=== PATIENT | male | born 1985 | race Caucasian/White ===

== ENCOUNTER 2025-01-05 16:07 | Emergency (ER) | payer SELFPAY ==
--- OUTSIDE RECORDS SUMMARY | 2025-01-05 16:12 | XMS_ITS | Encounter Summary ---
Author Organization [facility] Address [facility] [place] [address] Care Team Providers Care Convention Planner Name Role Phone Sandip Velasco MD Primary Care Provider [phone] Encounter Details Date Type Department Care Team (Late st Contact Info) Description 01/31/[address] 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
--- OUTSIDE RECORDS SUMMARY | 2025-01-05 16:12 | XMS_ITS | Clinical Summary ---
Author Organization [facility] Address [address] [place] [id number] Care Team Providers Care Property Field Adjuster Name Role Phone Sandip Velasco MD Primary Care Provider [phone] Allergies Active Allergy Reactions Criticality Noted Date Comments Penicillins Unknown 03/05/2011 Immunizations Immunization Administration Dates Next Due Tdap (Boostrix) 08/24/2022 Social History Tobacco Use Types Packs/Day Years Used Date Smoking Tobacco: Every Day Cigarettes Smokeless Tobacco: Never Tobacco Cessation:Ready to Q uit: Not Asked; Counseling Given: Not Answered Alcohol Use Standard Drinks/Week Comments Yes 20 (1 standard drink = 0.6 oz pu re alcohol) Sex and Gender Information Value Date Recorded Sex Assigned at Not on file 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 Gender Identity Not on file Sexual Orientation Not on file Last Filed Vital Signs Vital Sign Reading Time Taken Comments Blood Pressure 128/75 08/24/2022 7:56 PM AUDIT MACHINE OPERATOR Pulse 81 08/24/2022 7:56 PM AUDIT MACHINE OPERATOR Temperature 36.8 C (98.3 F) 08/24/2022 7:56 PM AUDIT MACHINE OPERATOR Respiratory Rate 16 08/24/2022 7:56 PM AUDIT MACHINE OPERATOR Oxygen Saturation 99% 08/24/2022 7:56 PM AUDIT MACHINE OPERATOR Inhaled Oxygen Concentration - - Weight 69.4 kg (153 lb) 08/24/2022 7:56 PM AUDIT MACHINE OPERATOR Height 170.2 cm (5' 7) 08/24/2022 7:56 PM AUDIT MACHINE OPERATOR Body Mass Index 23.96 08/24/2022 7:56 PM AUDIT MACHINE OPERATOR Plan of Treatment Health Maintenance Due Date Last Done Comments Annual Physical 10/20/1990 Hepatitis C 10/20/2005 Pneumococcal Vaccine: Pediatrics (0 to 5 Years) and At-Risk Patients (6 to 49 Years) (1 of 2 - PCV) 10/20/2006 COVID-19 Vaccine (1 - 2023-25 season) 2024 DTaP, Tdap and Td Vaccines (7 - Td or Tdap) 08/24/2032 08/24/2022, 08/04/2002, 11/21/1992, Additional history exists Hepatitis B Vaccines Completed 10/28/1997, 05/21/1997, 04/16/1997 HPV Vaccines Aged Out No longer eligi ble based on patient's age to complete this topic Meningococcal B Vaccine Aged Out No l onger eligible based on patient's age to complete this topic Meningococcal Vaccine Aged Out No jeanette priya eligible based on patient's age to complete this topic RSV Immunizations Under 20 Months Aged Out No longer eligible based on patient's age to complete this topic Insurance [facility] [place] [address] Care Teams Property Field Adjuster Relationship Specialty Start Date End Date Sandip Velasco MD [address] [place] [address] PCP - General INTERNAL MEDICINE 08/24/22
[2025-01-05 16:17] VITALS: BP 132/79; PULSE 82; RESP 18; TEMP 36.6; O2SAT 98
--- NOTE | 2025-01-05 16:31 | ED_ITS ---
HPI - General Adult General Chief complaint: Wound/Laceration Stated complaint: Bite his Tongue History of Present Illness HPI narrative: Crow Pérez Is a 39-year-old male who presents today after biting his tongue 2 months ago and he explains that he was drinking with buddies and 'messing around and he didn't realize until the following day that he had bit part of his tongue off and he states that it was not giving him any pain it was getting better and then he bit another part of his tongue a few days ago and still having a lot of pain to the right side of his tongue. No active bleeding just complains of right lateral tongue pain Related Data Allergies Allergy/AdvReac Type Severity Reaction Status Date / Time Penicillins Allergy Unknown Unknown Verified 01/05/25 16:24 Review of Systems Review of Systems: All systems reviewed & are unremarkable except as noted in HPI and below Exam Narrative: GENERAL: Well-appearing, well-nourished, and in no acute distress. HEAD: Normocephalic, atraumatic. EYES: PERRLA and EOMI. ENT: Nares clear, no rhinorrhea or epistaxis. Mucous membranes moist. Oropharynx without tonsillar hypertrophy exudate, the right lateral side of tongue noted to have possible healing area to the proximal aspect and more close to the tip there is another indentation that he says is the bite from 3 days ago, no open area, no active bleeding, NECK: Supple. No adenopathy or masses. No carotid bruits or JVD CHEST: No respiratory distress. HEART: Regular rate and rhythm. Normal peripheral pulses. EXTREMITIES: Normal range of motion. No edema. SKIN: Warm, dry, no rash. NEURO: No focal deficits. Alert and oriented x3. PSYCH: Normal mood and affect. Course Course Level of Care: Express Care Visit Vital Signs Vital signs: Vital Signs Temperature 36.6 C 01/05/25 16:17 Pulse Rate 82 01/05/25 16:17 Respiratory Rate 18 01/05/25 16:17 Blood Pressure 132/79 01/05/25 16:17 Pulse Oximetry 98 01/05/25 16:17 Oxygen Delivery Room Air 01/05/25 16:17 Temperature 36.6 C 01/05/25 16:17 Pulse Rate 82 01/05/25 16:17 Respiratory Rate 18 01/05/25 16:17 Blood Pressure 132/79 01/05/25 16:17 Pulse Oximetry 98 01/05/25 16:17 Oxygen Delivery Room Air 01/05/25 16:17 Medical Decision Making MDM Narrative Medical decision making narrative: 39 y/o with right lateral tongue pain after biting his tongue 2 months ago and then again 3 days ago. On exam there is a couple areas on the right lateral tongue that might represent this, he is expressing a lot of pain to his tongue No evidence of edema, oral pharynx intact no swelling No active bleeding or lacerations present plan to treat him here with topical lidoacine visous, tylenol, and motrin d/c with peridex swish and spit to help prevent infection close PCP follow up Medical Records Medical records reviewed: Yes I reviewed the external patient's medical records. Vital Signs Vital Signs: Vital Signs Temperature 36.6 C 01/05/25 16:17 Pulse Rate 82 01/05/25 16:17 Respiratory Rate 18 01/05/25 16:17 Blood Pressure 132/79 01/05/25 16:17 Pulse Oximetry 98 01/05/25 16:17 Oxygen Delivery Room Air 01/05/25 16:17 Temperature 36.6 C 01/05/25 16:17 Pulse Rate 82 01/05/25 16:17 Respiratory Rate 18 01/05/25 16:17 Blood Pressure 132/79 01/05/25 16:17 Pulse Oximetry 98 01/05/25 16:17 Oxygen Delivery Room Air 01/05/25 16:17 Vitals reviewed by me Discharge Plan Discharge Clinical Impression: Painful tongue Patient Disposition: Home Condition: Stable Instructions: Antibiotic Form Additional Instructions: Start using the Peridex to help cleanse your tongue twice daily swish and spit You may use the topical lidocaine twice daily to help with the pain Continue Tylenol / Motrin for pain follow up with your PCP in 1 week If you develop any worsening symptoms or have other concerns proceed to the ER Patient Language: Belgian Prescriptions: New lidocaine HCl [Lidocaine Viscous] 2 % solution 1 applic mucous membrane BID PRN (Reason: pain) Qty: 100 0RF chlorhexidine gluconate [Peridex] 0.12 % mouthwash 15 ml mucous membrane BID PRN (Reason: prevent infection ) 5 Days Qty: 120 0RF Follow-up/Referrals: PHYSICIAN,LABORATORY SAMPLE CARRIER [Primary Care Provider] - Time of Disposition: 16:45
[2025-01-05] MEDS: IBUPROFEN 600 MG TABLET PO (16:35)
[2025-01-05] MEDS: LIDOCAINE 2% VISC SOLN 15 ML UDC PO (16:35)
[2025-01-05] MEDS: ACETAMINOPHEN 500 MG TABLET 1000 MG PO (16:35)
== END 2025-01-05 17:04 | disposition home or self-care (01) ==
PROVIDERS: Emergency Provider Nurse Practitioner Family
DX: K14.6 Glossodynia (principal)
CPT/HCPCS: 99203; A9270; G0463